=== PATIENT | male | born 1995 | race African-American/Black ===

== ENCOUNTER 2018-05-16 02:02 | Emergency (ER) | payer SELFPAY ==
[~2018-05-16] VITALS: Ht 167.6 cm; Wt 61.8 kg
[2018-05-16 02:08] VITALS: BP 115/83; TEMP 97.5
[2018-05-16 02:50] VITALS: PULSE 78
== END 2018-05-16 02:50 | disposition home or self-care (01) ==
LOC: COL.ER 02:02
DX: S61.011A Laceration without foreign body of right thumb without damage to nail, initial encounter (principal); Z23 Encounter for immunization; W25.XXXA Contact with sharp glass, initial encounter; Y92.59 Other trade areas as the place of occurrence of the external cause

== ENCOUNTER → 2020-03-30 | Outpatient (CLI) | payer SELFPAY | LOC: EDSEX 16:04 → ZCOL.LAB 16:04 | DX: B34.9 Viral infection, unspecified (principal); Z20.828 Contact with and (suspected) exposure to other viral communicable diseases ==

== ENCOUNTER → 2020-03-30 | Outpatient (CLI) | payer SELFPAY | LOC: ZCOL.LAB 15:47 | DX: B34.9 Viral infection, unspecified (principal); Z20.828 Contact with and (suspected) exposure to other viral communicable diseases ==

== ENCOUNTER 2021-09-11 14:25 | Emergency (ER) | payer SELFPAY ==
[~2021-09-11] VITALS: Ht 170.2 cm; Wt 63.6 kg
[2021-09-11 14:41] VITALS: BP 125/79; PULSE 78; TEMP 98.1
[2021-09-11] MEDS ORDERED: NORCO 325 MG-51 TAB PO (16:19)
[2021-09-11] MEDS ORDERED: AMOXICILLIN 50500 MG PO (16:19)
== END 2021-09-11 16:45 | disposition home or self-care (01) ==
LOC: COL.ER 14:25
DX: K02.9 Dental caries, unspecified (principal)